=== PATIENT | female | born 1945 | race Caucasian/White ===

== ENCOUNTER → 2016-12-06 | Outpatient (CLI) | payer MEDICARE, OTHER | END | disposition home or self-care (01) | LOC: GMAB 16:36 | PROVIDERS: ATTEND Family Medicine | DX: R31.21 Asymptomatic microscopic hematuria (principal); R30.0 Dysuria ==

== ENCOUNTER → 2016-12-13 | Outpatient (CLI) | payer MEDICARE, OTHER | END | disposition home or self-care (01) | LOC: GMAB 12:12 | PROVIDERS: ATTEND Family Medicine | DX: E78.2 Mixed hyperlipidemia (principal) ==

== ENCOUNTER → 2017-07-17 | Outpatient (CLI) | payer MEDICARE, OTHER | LOC: GMAB 14:46 | PROVIDERS: ATTEND Family Medicine | DX: R30.0 Dysuria (principal) ==

== ENCOUNTER 2017-07-21 16:29 | Emergency (ER) | payer MEDICARE, OTHER ==
[2017-07-21] MEDS ORDERED: ACETAMINOPHEN 325 MG TAB PO ONE (16:42)
--- NOTE | 2017-07-21 16:43 | ED.PDOC ---
History of Present Illness - General Chief Complaint: Fever Stated Complaint: fever Time Seen by Provider: 07/21/17 16:40 Source: patient Exam Limitations: no limitations - History of Present Illness Initial Comments: Kiersten Ruiz 71 y/o female came to emergency room with non productive cough 3 days ago then developed fever yesterday as well as getting shaky.No dysuria, diarrhea,nausea or vomiting. Timing/Duration: constant, other - 3 days Severity: moderate Improving Factors: nothing Worsening Factors: nothing Associated Symptoms: cough Allergies/Adverse Reactions: Allergies NO KNOWN ALLERGY Allergy (Verified 07/21/17 16:42) Home Medications: Ambulatory Orders Clopidogrel Bisulfate [Plavix] 75 mg PO HS 05/22/13 Topiramate [Topamax] 100 mg PO HS 05/22/13 Aspirin [Aspirin EC Low Dose] 81 mg PO BEDTIME 02/13/16 Amoxicillin & Pot Clavulanate [Augmentin Tab] 875 mg PO BID #14 tab 06/23/16 Levofloxacin [Levaquin] 250 mg PO DAILY #5 tab 06/23/16 Primidone 50 mg PO DAILY 06/23/16 Vortioxetine HBr [Brintellix] 10 mg PO DAILY 06/23/16 Amoxicillin [Amoxil] 1,000 mg PO BID #40 cap 07/21/17 Oseltamivir Capsule [Tamiflu] 75 mg PO BID 5 Days #10 capsule 07/21/17 Review of Systems - Review of Systems Constitutional: States: fever EENTM: States: nose congestion Respiratory: States: cough Cardiology: States: no symptoms reported Gastrointestinal/Abdominal: States: no symptoms reported Genitourinary: States: no symptoms reported All other Systems: Reviewed and Negative Past Medical History (General) - Patient Medical History Hx Seizures: No Hx Stroke: No Hx Asthma: No Hx of COPD: No Hx Cardiac Disorders: Yes - stent, hyperlipidemia Hx Congestive Heart Failure: No Hx Pacemaker: No Hx Hypertension: No Hx Diabetes: No Hx MRSA: No Surgical History: other - cardiac stent,hysterectomy,c-spine - Vaccination History Hx Tetanus, Diphtheria Vaccination: No Hx Influenza Vaccination: No Hx Pneumococcal Vaccination: No - Social History Hx Tobacco Use: No Hx Alcohol Use: No Hx Substance Use: No Hx Physical Abuse: No Hx Emotional Abuse: No - Female History Patient is a Female of Child Bearing Age (10 -59 yrs old): No Patient : No Family Medical History - Family History Father Living Status: Cause of : [place] Hx Cardiac Disease: Yes Physical Exam - Physical Exam General Appearance: Alert, No apparent distress Eye Exam: bilateral normal Ears, Nose, Throat: hearing grossly normal, normal pharynx Neck: full range of motion, supple Respiratory: no respiratory distress, rhonchi Cardiovascular/Chest: normal peripheral pulses, regular rate, rhythm, no murmur Peripheral Pulses: radial,right: 2+, radial,left: 2+ Gastrointestinal/Abdominal: normal bowel sounds, non tender, soft, no organomegaly Back Exam: normal inspection, no vertebral tenderness Extremity: non-tender, no calf tenderness Neurologic: alert, oriented x 3 Skin Exam: normal color, warm/dry Progress - Progress Progress: 07/21/17 17:38 Laboratory Tests 07/21/17 07/21/17 07/21/17 17:04 17:04 17:04 WBC 9.7 RBC 4.57 Hgb 13.9 Hct 42.3 MCV 92.5 MCH 30.4 MCHC 32.9 L RDW 13.9 Plt Count 229 MPV 9.2 Absolute Neuts (auto) 7.90 H Absolute Lymphs (auto) 1.00 Absolute Monos (auto) 0.70 Absolute Eos (auto) 0.10 Absolute Basos (auto) 0.00 Neutrophils % 81.1 H Lymphocytes % 10.4 L Monocytes % 6.7 Eosinophils % 1.4 Basophils % 0.4 Sodium 139 Potassium 4.1 Chloride 106 Carbon Dioxide 22 Anion Gap 15.1 BUN 20 H Creatinine 1.24 BUN/Creatinine Ratio 16.1 Random Glucose 145 H Serum Osmolality 282.7 Lactic Acid 1.5 Calcium 10.0 Total Bilirubin 0.4 AST 15 ALT 15 Alkaline Phosphatase 88 Serum Total Protein 8.6 H Albumin 4.7 Globulin 3.9 H Albumin/Globulin Ratio 1.2 - Results/Orders Results/Orders: Laboratory Tests 07/21/17 07/21/17 07/21/17 17:04 17:04 17:04 WBC 9.7 RBC 4.57 Hgb 13.9 Hct 42.3 MCV 92.5 MCH 30.4 MCHC 32.9 L RDW 13.9 Plt Count 229 MPV 9.2 Absolute Neuts (auto) 7.90 H Absolute Lymphs (auto) 1.00 Absolute Monos (auto) 0.70 Absolute Eos (auto) 0.10 Absolute Basos (auto) 0.00 Neutrophils % 81.1 H Lymphocytes % 10.4 L Monocytes % 6.7 Eosinophils % 1.4 Basophils % 0.4 Sodium 139 Potassium 4.1 Chloride 106 Carbon Dioxide 22 Anion Gap 15.1 BUN 20 H Creatinine 1.24 BUN/Creatinine Ratio 16.1 Random Glucose 145 H Serum Osmolality 282.7 Lactic Acid 1.5 Calcium 10.0 Total Bilirubin 0.4 AST 15 ALT 15 Alkaline Phosphatase 88 Serum Total Protein 8.6 H Albumin 4.7 Globulin 3.9 H Albumin/Globulin Ratio 1.2 FLU A/B swab-negative - EKG/XRAY/CT XRAY: chest - no acute abnormalities Departure - Departure Clinical Impression: Viral respiratory illness Time of Disposition: 17:49 Disposition: Discharge to Home or Self Care Condition: Fair Departure Forms: ED Discharge - Pt. Copy, Patient Portal Self Enrollment Instructions: DI for Viral Upper Respiratory Infection -- Adult, DI for Common Cold, Common Cold, Complementary Therapies for the Common Cold, Common Cold ( Alternative Therapy) Referrals: Tiago Laurent MD [Primary Care Provider] - 1-2 Weeks Prescriptions: Amoxicillin [Amoxil] 1,000 mg PO BID #40 cap Oseltamivir Capsule [Tamiflu] 75 mg PO BID 5 Days #10 capsule Home Medications: Ambulatory Orders Clopidogrel Bisulfate [Plavix] 75 mg PO HS 05/22/13 Topiramate [Topamax] 100 mg PO HS 05/22/13 Aspirin [Aspirin EC Low Dose] 81 mg PO BEDTIME 02/13/16 Amoxicillin & Pot Clavulanate [Augmentin Tab] 875 mg PO BID #14 tab 06/23/16 Levofloxacin [Levaquin] 250 mg PO DAILY #5 tab 06/23/16 Primidone 50 mg PO DAILY 06/23/16 Vortioxetine HBr [Brintellix] 10 mg PO DAILY 06/23/16 Amoxicillin [Amoxil] 1,000 mg PO BID #40 cap 07/21/17 Oseltamivir Capsule [Tamiflu] 75 mg PO BID 5 Days #10 capsule 07/21/17 Additional Instructions: Follow up with primary Md 07/22/2017 as needed;May use over the counter cough medicine-Mucinex DM one tablet am/pm for cough;Benadryl capsule 25 mg-1-2 capsule at bedtime;Increase oral fluid intake,Tylenol 500 mg one tablet every 4 hours for fever/pain
[2017-07-21 16:47] VITALS: BP 153/77
[2017-07-21] MEDS ORDERED: LEVALBUTEROL NEBS 1.25 MG/3 ML VIAL NEB ONE (16:48)
--- NOTE | 2017-07-21 17:10 | RAD ---
EXAM DESCRIPTION: Chest,2 Views CLINICAL HISTORY: cough/fever COMPARISON: None FINDINGS: Cardiac silhouette is within normal limits. There is no focal parenchymal or pleural disease. There is no acute osseous process visualized. IMPRESSION: No evidence of acute cardiopulmonary disease. Electronically signed by: Dixon Talley MD 07/21/2017 5:09 PM [employer]
[2017-07-21] MEDS ORDERED: AMOXICILLIN 500 MG CAP PO ONE (17:45)
[2017-07-21] MEDS ORDERED: OSELTAMIVIR 75 MG CAP PO ONE (17:45)
[2017-07-21] MEDS ORDERED: BENZONATATE PERLES 100 MG CAP PO ONE (17:46)
[2017-07-21 18:03] VITALS: TEMP 102.7; O2SAT 96
== END 2017-07-21 18:03 | disposition home or self-care (01) ==
LOC: ER 16:29
DX: R50.9 Fever, unspecified (principal); B34.9 Viral infection, unspecified; E78.5 Hyperlipidemia, unspecified; Z98.61 Coronary angioplasty status; Z79.82 Long term (current) use of aspirin; Z90.2 Acquired absence of lung [part of]
CPT/HCPCS: 36415; 71046; 80053; 83605; 85025; 87502; 94640; J7614

== ENCOUNTER → 2018-03-05 | Outpatient (CLI) | payer MEDICARE, OTHER ==
--- NOTE | 2018-03-05 11:57 | MRI ---
EXAM DESCRIPTION: Cervical Spine: MRI. CLINICAL HISTORY: M47.812 COMPARISON: Noncontrast MRI scan cervical spine 01/26/2011. TECHNIQUE: Multiplanar MRI, multiple sequences, non-contrast High-field. FINDINGS: ACDF C3-C6. Artifact associated with the hardware. No abnormal fluid accumulation in the extra spinal soft tissues, no edema in the cord, and no epidural fluid collection. Moderate canal narrowing C4-5. Uncinate and facet arthrosis on the left resulting in left neural foraminal stenosis at this level. Disc space almost completely bony fused at C3-4. C6-7: Disc desiccation no significant bulging. Moderate left neural foraminal narrowing. Minimal bilateral facet arthrosis. C2-3 disc with minimal desiccation no bulging. Canal and bilateral neural foramina are patent. Normal signal in the remaining discs with no bulging. Disc spaces preserved. Canal and neural foramina are patent. Facets are negative. Spinal alignment reduced lordosis.. No cord compression or cord edema. Atlantoaxial joint is showing minimal hypertrophic changes.. Base of the cerebellar tonsils is at the level of the foramen magnum. Paravertebral soft tissues unremarkable. Vertebral bodies are not compressed at any level. Normal marrow signal in the remaining vertebral bodies and the posterior elements. IMPRESSION: 1. ACDF C3-C6 with no bony or hardware complications. Moderate canal narrowing at C4-5, with minimal left neural foraminal stenosis. Progressed since the prior study. 2. Remaining discs with no significant bulging. No canal or neural foraminal stenosis at these levels.. Electronically signed by: Davy Rachel MD 03/05/2018 11:55 AM CDT
== END ==
LOC: MRI 09:00
PROVIDERS: ATTEND Specialist
DX: M47.812 Spondylosis without myelopathy or radiculopathy, cervical region (principal)

== ENCOUNTER → 2018-03-06 | Outpatient (CLI) | payer MEDICARE, OTHER | LOC: GMATM 17:42 | PROVIDERS: ATTEND Nurse Practitioner Family | DX: N30.00 Acute cystitis without hematuria (principal) ==

== ENCOUNTER → 2018-04-29 | Outpatient (CLI) | payer MEDICARE, OTHER ==
--- NOTE | 2018-04-29 15:47 | CT ---
EXAM DESCRIPTION: Cervical Spine: Computed Tomography. CLINICAL HISTORY: CERVICAL DISC DISORDER COMPARISON: Radiographs of the cervical spine on the same visit. Radiographs of the cervical spine 03/05/2018. MRI scan of the cervical spine 03/05/2018. TECHNIQUE: Spiral, axial 2.5 x 2.5 mm scans through the cervical spine without contrast. Coronal and sagittal 2.0 mm Reconstructions. Total Exam DLP: 249.44 mGy-cm. This exam was performed according to our departmental dose-optimization program which includes automated exposure control, adjustment of the mA and/or kV according to patient size and/or use of iterative reconstruction technique; to reduce radiation dose to as low as reasonably achievable (ALARA). FINDINGS: Narrowing of the atlantoaxial joint with spur formation. Atlantooccipital joint is unremarkable bilaterally. No acute bony abnormality. C1-2 facets are negative. C2-3 disc space preserved. Posterior midline 2 mm bulge of the disc abutting the cord. Canal and bilateral foramina are patent. Minimal arthrosis in the left C2-3 facet. No fractures. C3-4: ACDF with interbody fusion device. Interbody fusion mostly osseous and almost complete. Hardware appears intact. Normal bone density around the screws with normal plate position. No canal narrowing. Minimal bilateral neural foraminal narrowing. Minimal arthrosis bilateral facets. No abnormal radiodense material in the soft tissues. Normal bone density, no fractures. C4-C5: This level is not fused, but there is disc space loss and trace anterolisthesis. Almost bridging spurs anteriorly with posterior midline and left paracentral 3 to 4 mm bulge or protrusion impressing on the cord. Borderline canal stenosis. Left facet arthrosis and uncinate spur with neural foraminal stenosis. Mild narrowing of the right neural foramen. Normal bone density, no fractures. C5-C7: ACDF with interbody cages in the disc spaces. Hardware appears intact. Minimal bony fusion at age level. No canal stenosis. Bilateral neural foraminal narrowing at each level. Bilateral facet arthrosis more at C6-7 and C5-C6. Normal bone density around the screws. No abnormal radiodense material in the soft tissues. No fractures. C7-T1: Trace anterolisthesis. Minimal disc space narrowing. Facet arthrosis more on the left than the right. Right neural foramen is patent with borderline left neural foraminal stenosis. Normal bone density. No fractures. T1-2: Trace anterolisthesis. Mild right neural foraminal narrowing; borderline left neural foraminal stenosis. Canal is patent. Arthrosis in the left facet. Normal bone density. No fractures. Minimal reduction of normal cervical lordosis. Mild levoscoliosis. IMPRESSION: 1. ACDF C3-4 with interbody fusion device; osseous fusion is almost completely. Bilateral neural foraminal narrowing. Minimal. Minimal canal narrowing. 2. Posterior midline bulge of the C2-3 disc abutting the cord. Minimal arthrosis in the left C2-3 facet. 3. C4-5 with trace anterolisthesis. Posterior midline and left paracentral disc bulge or small protrusion with borderline left paracentral canal stenosis. Left neural foraminal stenosis. Correlate for left C5 radiculopathy. 4. C5-C7 ACDF with interbody fusion cages. Bilateral facet arthrosis. Bilateral neural foraminal narrowing. 5. C7-T1 right neural foraminal narrowing and left neural foraminal stenosis with facet arthrosis and left uncinate spur. Electronically signed by: Davy Rachel MD 04/29/2018 3:45 PM [facility]
--- NOTE | 2018-04-29 15:57 | RAD ---
EXAM DESCRIPTION: Cervical Spine,5 Views CLINICAL HISTORY: CERVICAL DISC DISORDER COMPARISON: CT scan of the cervical spine on the same visit.. TECHNIQUE: AP and lateral images cervical spine. Lateral oblique "Open-mouth" radiographs of the atlantoaxial joint. FINDINGS: Cervical type vertebra: 7. Disk spaces: ACDF C3-4 with interbody fusion and partial ossification. C5-C7 fusion with interbody cages. Narrowing C4-C5 disc space and C7-T1 disc space with minimal anterolisthesis. Facet joints: Arthrosis at multiple levels. Compression deformities: None. Bone Density: Minimally decreased. Oblique: Narrowing of the right C4-5 neural foramen and right C6-7 neural foramen. Difficulty evaluating the left neural foramen due to nondiagnostic position of the LA oblique. Alignment: Decreased lordosis. Grade 1 anterolisthesis C7-T1. Atlanto-axial joint: Anatomic alignment. Soft Tissue: No abnormal density bilaterally. IMPRESSION: Interbody fusion at C3-4 and interbody cages at C5-C7. Customary position. Near-anatomic alignment. C4-C5 disc space narrowing. Anterolisthesis at C7-T1. Possible neural foraminal stenosis on the right at C4-5 and on the right at C6-7. Electronically signed by: Davy Rachel MD 04/29/2018 3:56 PM [employer]
== END ==
LOC: CT 10:00
PROVIDERS: ATTEND Neurological Surgery
DX: M50.121 Cervical disc disorder at C4-C5 level with radiculopathy (principal); M50.20 Other cervical disc displacement, unspecified cervical region; Z98.1 Arthrodesis status

== ENCOUNTER → 2018-07-23 | Outpatient (CLI) | payer MEDICARE, OTHER ==
--- NOTE | 2018-07-24 08:36 | RAD ---
Procedure: XR CERVICAL SPINE 2 - 3 VIEWS Exam Date: 07/23/2018 Ordering Provider: Lawrence Obando Clinical Indication: POST LAMINECTOMY SYNDROME Comparison: 04/29/2018 Findings/impression: Postsurgical changes of ACDF with interbody fusion at C3-C4 are without radiographic evidence of hardware complication. Stable ACDF with interbody cages from C5 to C7. Anterior interbody fusion device at C4-C5 is new and without radiographic evidence of hardware complication. Postsurgical changes of posterior cervical fusion with bilateral lateral mass screws and rods at C4-C5 are new compared to prior and without radiographic evidence of hardware complication. Multilevel facet arthropathy. Trace anterolisthesis of C7 on T1. There is no acute fracture. The prevertebral soft tissues are within normal limits. Electronically signed by: Xavier Garcia MD 07/24/2018 8:34 AM [facility]
== END ==
LOC: RAD 13:53
PROVIDERS: ATTEND Neurological Surgery
DX: M96.1 Postlaminectomy syndrome, not elsewhere classified (principal); M50.121 Cervical disc disorder at C4-C5 level with radiculopathy

== ENCOUNTER → 2019-02-12 | Outpatient (CLI) | payer MEDICARE, OTHER | LOC: GMAE 14:40 | PROVIDERS: ATTEND Family Medicine | DX: E53.8 Deficiency of other specified B group vitamins (principal); E83.51 Hypocalcemia; R53.82 Chronic fatigue, unspecified; M62.81 Muscle weakness (generalized); Z13.6 Encounter for screening for cardiovascular disorders ==

== ENCOUNTER → 2019-06-01 | Outpatient (CLI) | payer MEDICARE, OTHER ==
--- NOTE | 2019-06-01 16:22 | RAD ---
EXAM DESCRIPTION: Cervical Spine, 2-3 Views CLINICAL HISTORY: 73 years Female, CERVICAL STENOSIS COMPARISON: Radiographs of the cervical spine dated 07/23/2018. TECHNIQUE: 3 views of the cervical spine were obtained. FINDINGS: The visualized bones appear diffusely osteopenic. Anterior spinal fixation hardware is noted traversing C3-C7 vertebral bodies. Posterior spinal fixation hardware is noted traversing C4 and C5 vertebral bodies. Degenerative disc disease is not well evaluated on radiographs. IMPRESSION: Anterior spinal fixation hardware is noted traversing C3-C7 vertebral bodies. Posterior spinal fixation hardware is noted traversing C4 and C5 vertebral bodies. Electronically signed by: Rangel Gaines MD 06/01/2019 4:20 PM [facility]
== END ==
LOC: RAD 14:11
PROVIDERS: ATTEND Neurological Surgery
DX: M48.02 Spinal stenosis, cervical region (principal); Z98.890 Other specified postprocedural states

== ENCOUNTER 2020-01-05 16:08 | Observation (INO) | payer MEDICARE, OTHER ==
[2020-01-05] MEDS ORDERED: SODIUM CHLORIDE 0.9% (FLUSH) 10 ML SYG IV PRN ×2 (16:11→21:01)
--- NOTE | 2020-01-05 16:12 | ED.PDOC ---
History of Present Illness - General Time Seen by Provider: 01/05/20 16:11 Source: patient - History of Present Illness Initial Comments: 74-year-old female with past medical history of TIAs who presents with chief complaint of left upper extremity weakness. Onset around 7 PM yesterday evening which was about 9.5 hours ago. Reports has been constant in nature since then. States that it feels like her arm is heavy and having difficulty grasping and lifting items. The symptoms are present throughout the entire left upper extremity and her hand. She denies any numbness. She denies any other focal neurological deficits including facial droop, slurred speech, confusion, ataxia, visual changes. She reports similar symptoms about 6 years ago which eventually resolved and she was told that she had a TIA. No other symptoms since then. She took 2 baby aspirin last night but has not taken any medication today for her symptoms. Allergies/Adverse Reactions: Allergies NO KNOWN ALLERGY Allergy (Verified 07/21/17 16:42) Home Medications: Ambulatory Orders RX: Topiramate [Topamax] 200 mg PO HS 05/22/13 Aspirin [Aspirin EC Low Dose] 81 mg PO BEDTIME 02/13/16 RX: Primidone 50 mg PO BEDTIME 06/23/16 Atorvastatin Calcium [Lipitor] 20 mg PO BEDTIME 01/05/20 Vortioxetine HBr [Brintellix] 10 mg PO DAILY 01/05/20 tiZANidine [Zanaflex] 2 - 4 mg PO BEDTIME 01/05/20 Review of Systems - Review of Systems Review of Systems: 01/06/20 05:08 as per HPI All other Systems: Reviewed and Negative Past Medical History (General) - Patient Medical History Hx Seizures: No Hx Stroke: No Hx Asthma: No Hx of COPD: No Hx Cardiac Disorders: Yes - stent, hyperlipidemia Hx Congestive Heart Failure: No Hx Pacemaker: No Hx Hypertension: No Hx Diabetes: No Hx MRSA: No - Vaccination History Hx Tetanus, Diphtheria Vaccination: No Hx Influenza Vaccination: No Hx Pneumococcal Vaccination: No - Social History Hx Tobacco Use: No Hx Alcohol Use: No Hx Substance Use: No Hx Physical Abuse: No Hx Emotional Abuse: No - Female History Patient : No Family Medical History - Family History Brother Hx Family Stroke: Yes Father Living Status: Cause of : [place] Hx Cardiac Disease: Yes Physical Exam - Physical Exam General Appearance: Alert, Comfortable, No apparent distress Eye Exam: bilateral normal Ears, Nose, Throat: hearing grossly normal, normal ENT inspection, normal pharynx Neck: non-tender, full range of motion, supple, normal inspection Respiratory: lungs clear, normal breath sounds, no respiratory distress, no accessory muscle use Cardiovascular/Chest: normal peripheral pulses, regular rate, rhythm, no edema, no gallop, no JVD, no murmur Peripheral Pulses: radial,right: 2+, radial,left: 2+ Gastrointestinal/Abdominal: non tender, soft Back Exam: normal inspection Extremity: normal range of motion, non-tender, normal inspection, no pedal edema, no calf tenderness, normal capillary refill Neurologic: master of ceremonies II-XII nml as tested, no motor/sensory deficits, alert, normal mood/affect, oriented x 3 Skin Exam: normal color, warm/dry Progress - Progress Progress: 01/05/20 16:31 LUE weakness -Consider TIA, CVA, other -Obtain CT head, cardiac work-up, labs -NIH score on arrival of 0. As patient is outside of the 4.5-hour TPA window, she is not a candidate for TPA unfortunately. Hopefully her low NIH score will portend a good prognosis. 01/05/20 18:31 -CT head reveals no acute processes. Chest x-ray shows no acute processes per my read. Labs reveal WBC of 12,000 with slight left shift, otherwise unremarkable. Given leukocytosis and increasing prevalence of COVID-19, will obtain rapid COVID-19 antigen test. -Pt reexamined, remains unchanged -We will give aspirin 324 mg p.o. for TIA versus CVA -Spoke with Dr. Yusuf who accepts to his service for further care Thien Blank MD Billing #[id number] 01/05/20 16:11 IV Care:Saline Lock per Protoc QSHIFT Telemetry .ONCE Sodium Chloride 0.9% (Flush) [Saline Flush Syringe] 10 ml IV PRN PRN 01/05/20 16:15 EKG STAT 01/05/20 18:25 RESPIRATORY PANEL 2 Stat 01/05/20 18:30 URINALYSIS Stat Laboratory Results - last 24 hr 01/05/20 01/05/20 01/05/20 16:36 16:36 16:36 WBC 12.0 H RBC 4.22 Hgb 13.1 Hct 38.9 MCV 92.3 MCH 31.2 H MCHC 33.8 RDW 13.8 Plt Count 245 MPV 8.9 Absolute Neuts (auto) 9.20 H Absolute Lymphs (auto) 2.00 Absolute Monos (auto) 0.80 Absolute Eos (auto) 0.00 Absolute Basos (auto) 0.00 Neutrophils % 76.4 Lymphocytes % 16.6 L Monocytes % 6.6 Eosinophils % 0.3 L Basophils % 0.1 PT 9.8 INR < 1.00 PTT (SP) 23.4 Sodium 138 Potassium 4.2 Chloride 110 Carbon Dioxide 18 L Anion Gap 14.2 BUN 41 H Creatinine 1.10 BUN/Creatinine Ratio 37.3 H POC Glucose Random Glucose 165 H Serum Osmolality 289.5 Calcium 9.2 Total Bilirubin 0.5 AST 21 ALT 30 Alkaline Phosphatase 78 Troponin I Serum Total Protein 7.2 Albumin 3.9 Globulin 3.3 Albumin/Globulin Ratio 1.2 01/05/20 01/05/20 16:36 16:36 WBC RBC Hgb Hct MCV MCH MCHC RDW Plt Count MPV Absolute Neuts (auto) Absolute Lymphs (auto) Absolute Monos (auto) Absolute Eos (auto) Absolute Basos (auto) Neutrophils % Lymphocytes % Monocytes % Eosinophils % Basophils % PT INR PTT (SP) Sodium Potassium Chloride Carbon Dioxide Anion Gap BUN Creatinine BUN/Creatinine Ratio POC Glucose 160 H Random Glucose Serum Osmolality Calcium Total Bilirubin AST ALT Alkaline Phosphatase Troponin I < 0.02 Serum Total Protein Albumin Globulin Albumin/Globulin Ratio 01/06/20 05:07 - EKG/XRAY/CT EKG: Sinus - NSR, HR 80, no ST elevs or q waves noted, axis normal, intervals normal, compared to 12/27/14 EKG appears largely unchanged. XRAY: chest - No acute processes per my read. Departure - Departure Clinical Impression: TIA (transient ischemic attack) Time of Disposition: 18:30 Disposition: Admit Patient Condition: Fair Home Medications: Ambulatory Orders RX: Topiramate [Topamax] 200 mg PO HS 05/22/13 Aspirin [Aspirin EC Low Dose] 81 mg PO BEDTIME 02/13/16 RX: Primidone 50 mg PO BEDTIME 06/23/16 Atorvastatin Calcium [Lipitor] 20 mg PO BEDTIME 01/05/20 Vortioxetine HBr [Brintellix] 10 mg PO DAILY 01/05/20 tiZANidine [Zanaflex] 2 - 4 mg PO BEDTIME 01/05/20 Decision To Admit - Decistion To Admit Decision to Admit Reason: Admit from ER Decision to Admit Date: 01/05/20 Decision to Admit Time: 18:31
--- NOTE | 2020-01-05 17:08 | RAD ---
EXAM DESCRIPTION: Chest,1 View x-ray CLINICAL HISTORY: 74 years Female, Left-sided weakness COMPARISON: 07/21/2017 IMPRESSION: Heart size and pulmonary vascularity are within normal limits. There is no airspace consolidation, pleural effusion, or pneumothorax. No acute osseous abnormality. Lower cervical ACDF hardware. Electronically signed by: Johnnie Agrawal MD 01/05/2020 5:07 PM CDT
--- NOTE | 2020-01-05 17:10 | CT ---
EXAM DESCRIPTION: CT-Head CLINICAL HISTORY: Left-sided weakness COMPARISON: MRI brain 11/07/2012 TECHNIQUE: Multiple axial images of the head without contrast. Multiplanar reformatted images. This exam was performed according to our departmental dose-optimization program, which includes automated exposure control, adjustment of the mA and/or kV according to patient size and/or use of iterative reconstruction technique. FINDINGS: There is no CT evidence of intracranial hemorrhage, mass effect, or large territory infarction. Mild generalized volume loss. Mild patchy supratentorial white matter hypodensities. There are no abnormal extra-axial fluid collections. Calcific plaque in the visualized arteries. There is no acute calvarial defect. The visualized paranasal sinuses and the mastoids are clear. IMPRESSION: 1. No CT evidence of an acute intracranial abnormality. If there is concern for an acute or subacute infarct, consider follow-up MRI. 2. Mild senescent changes. Electronically signed by: Johnnie Agrawal MD 01/05/2020 5:08 PM CDT
[2020-01-05] MEDS ORDERED: cefTRIAXone SODIUM 1 GM in SODIUM CHL 0.9% 50ML MIN-BAG+ 50 ML IVPB ONE (18:54)
[2020-01-05] MEDS ORDERED: GLUCAGON INJ 1 MG VIAL SUBCU PRN (21:01)
[2020-01-05] MEDS ORDERED: DEXTROSE 50% 25 GM/50 ML SYG IV PRN (21:01)
[2020-01-05] MEDS ORDERED: ACETAMINOPHEN 325 MG TAB PO PRN (21:01)
--- NOTE | 2020-01-05 21:02 | HP ---
CHIEF COMPLAINT: Left arm weakness. HISTORY OF PRESENT ILLNESS: The patient noticed last night that she had a weak left arm. She had a difficult time gripping things and moving her left arm, also some paresthesia in the left arm and hand. This persisted throughout the night. This morning, she called her primary care physician, Dr. Woo, who recommended she come to the Emergency Room. In the Emergency Room, the weakness had significantly improved, but there was some persistent weakness in the left arm. She denied any other symptoms. She denies any chest pain, shortness of breath, nausea, vomiting, diaphoresis. She had no other weakness. Her legs seemed to be functioning fine. She did not have any slurred speech. Her mental status remained sharp throughout. PAST MEDICAL HISTORY: 1. Previous transient ischemic attack several years ago. 2. Type 2 diabetes mellitus. 3. Coronary artery disease and had stents placed in 2012. She is not sure which arteries they were placed in. PAST SURGICAL HISTORY: 1. Hysterectomy with bilateral oophorectomy. 2. Cervical spine procedure in July of 2018. She is unsure exactly what was done. CURRENT MEDICATIONS: 1. Plavix 75 mg 1 tablet p.o. q.h.s. 2. Topamax 100 mg 1 tablet p.o. q.h.s. 3. Aspirin 81 mg p.o. q.h.s. These medicines have not yet been verified, they will be verified by [facility]. ALLERGIES: NO KNOWN DRUG ALLERGIES. FAMILY HISTORY: Her father at age 76 of coronary artery disease. Her mother at age 93 with coronary artery disease. She has four children, all of whom are healthy. SOCIAL HISTORY: The patient is . She worked in the school for a number of years. She has no history of tobacco, alcohol or drug abuse. REVIEW OF SYSTEMS: CONSTITUTIONAL: No fever, chills, weight gain, weight loss or weight gain. HEENT: No visual disturbance, neck pain or stiffness. CARDIAC: No chest pain or palpitations. RESPIRATORY: No shortness of breath, cough or hemoptysis. GASTROINTESTINAL: No nausea, vomiting, hematemesis, hematochezia, melena, diarrhea or constipation. GENITOURINARY: She has had some minimal dysuria. No hematuria or polyuria. MUSCULOSKELETAL: No joint aches or muscle pains. SKIN: No rashes. NEUROLOGIC: As per history of present illness, she has weakness in her left arm. PHYSICAL EXAMINATION: VITAL SIGNS: From the Emergency Room, pulse 66, respiratory rate 20, blood pressure 147/66, oxygen saturation 97%, temperature 98. GENERAL: This is a well-nourished, well-hydrated female. She is in no acute distress at the time of my arrival. HEENT: Normocephalic, atraumatic. Tympanic membranes are clear. Pupils are equal, round, and reactive to light. Extraocular muscles are intact. Throat is clear. Mucous membranes are moist. NECK: Supple. No jugular venous distention, no carotid bruits. She has a well-healed incisional scar in the posterior neck. It is vertical. CHEST: Clear to auscultation bilaterally. No wheezes or rales. HEART: Regular rate and rhythm without murmur. ABDOMEN: Soft, nontender, nondistended. Bowel sounds positive. No rebound or guarding. EXTREMITIES: No cyanosis, clubbing or edema. NEUROLOGIC: Alert and oriented to person, place, time and situation. Cranial nerves II-XII are intact. Deep tendon reflexes are equal bilaterally. Strength shows left arm with slightly weakened medicare biller strength in the left hand and slightly decreased ability to pull towards herself with that left arm compared with the right. Otherwise, she has full range of motion on all extremities. The rest of her extremities are equal. She is able to stand. Romberg test is negative. SKIN: No lesions or rashes. She has some seborrheic keratoses on her back. Otherwise unremarkable. LABORATORY: White blood cell count 12.0, hemoglobin 13.1, hematocrit 38.9, platelet count 245. PT 9.8, INR less than 1, PTT 23.4. Sodium 138, potassium 4.2, chloride 110, CO2 18, anion gap 14.2, BUN 41, creatinine 1.1, glucose 160, ALT 21, AST 30, alkaline phosphatase 78, total serum protein 7.2. Urinalysis had too numerous to count white blood cells, 5 to 10 red blood cells, large leukocyte esterase and 2+ urine bacteria. IMAGING: CT scan of the head done in the Emergency Room showed no evidence of any acute intracranial abnormality. Chest x-ray was unremarkable. IMPRESSION: 1. Acute cerebrovascular accident with now greater than 24 hour weakness in the left hand, but does seem to be improving and possibly will be a resolving neurologic deficit. 2. Urinary tract infection. 3. Type 2 diabetes mellitus. 4. Hyperlipidemia. DISCUSSION/PLAN: This patient will be admitted for observation. Close neurological monitoring will be performed overnight. She will be on Plavix 75 mg a day as well as aspirin 81 mg a day. Her blood pressure will be monitored closely. Her home medications will be verified and resumed. We will reevaluate her in the morning. She will have an echocardiogram, carotid Doppler and MRI tomorrow as well. I would anticipate if she continues to improve she may be able to go home tomorrow. #[id number] [facility]
[2020-01-05] MEDS ORDERED: IV SET AND CAP CHANGE INJ INJ SCH (21:30)
[2020-01-05] MEDS ORDERED: PRIMIDONE 50 MG TAB PO ONE (21:58)
[2020-01-05] MEDS ORDERED: ATORVASTATIN 20 MG TAB PO ONE (21:59)
[2020-01-05] MEDS ORDERED: tiZANidine 4 MG TAB ONE (21:59)
[2020-01-05] MEDS ORDERED: ASPIRIN (ENTERIC COATED) 81 MG TAB PO ONE (21:59)
[2020-01-06] MEDS: INSULIN LISPRO 100 UNITS/ML PEN SUBCU SCH ×2 (07:30→12:34)
[2020-01-06] MEDS ORDERED: NON-FORMULARY MEDICATION 1 EA MIS (Vortioxetine Hbr [Trintellix] 10 MG) PO SCH (09:00)
[2020-01-06] MEDS ORDERED: ASPIRIN (CHEWABLE) 81 MG TAB PO SCH (09:00)
[2020-01-06] MEDS ORDERED: cefTRIAXone SODIUM 1 GM in SODIUM CHL 0.9% 50ML MIN-BAG+ 50 ML IVPB SCH (09:00)
[2020-01-06] MEDS ORDERED: CLOPIDOGREL 75 MG TAB PO SCH (09:00)
--- NOTE | 2020-01-06 13:46 | US ---
EXAM DESCRIPTION: Carotid Duplex: ULTRASOUND. CLINICAL HISTORY: 74 years Female CVA COMPARISON: MRI brain on the same visit. TECHNIQUE: Transcutaneous scanning utilizing gómez-scale and Doppler modes to evaluate the bilateral carotid systems and vertebral arteries. Percentage of diameter of stenosis or no stenosis recorded will be based upon NASCET criteria. FINDINGS: Peak systolic/end diastolic (CM-Sec) CCA Right 78/13 Left 93/11. ICA Right proximal 48/13, mid 57/14. Left proximal 49/12, Distal 57/15. Vertebral Right 39/9 Left 47/13. ECA (PS Only) Right 134 left 51. ICA/CCA peak systolic ratio: Right 0.7 Left 0.6 ICA/CCA end diastolic ratio: Right 1.1 Left 1.4 Vertebral arteries: antegrade flow. Comments Comments: Bilateral atherosclerotic calcification in the common carotid bulbs and proximal ICAs. Spectral broadening in the left ICA with color turbulent flow distally. IMPRESSION: 1. Doppler evaluation of the bilateral carotid systems and vertebral arteries shows no hemodynamically significant stenoses (less than 70%). 2. No significant amount of plaque in the carotid arteries bilaterally. Bilateral vertebral arteries showed antegrade-cephalad flow. Electronically signed by: Davy Rachel MD 01/06/2020 1:44 PM CDT
[2020-01-06 15:36] VITALS: O2SAT 95
[2020-01-06 18:12] VITALS: BP 118/70; TEMP 98.1
[2020-01-06] MEDS ORDERED: NON-FORMULARY MEDICATION 1 EA MIS (Topiramate [Topamax] 200 MG) PO SCH (21:00)
[2020-01-06] MEDS ORDERED: ATORVASTATIN 20 MG TAB PO SCH ×2 (21:00)
[2020-01-06] MEDS ORDERED: tiZANidine 4 MG TAB PO SCH (21:00)
[2020-01-06] MEDS ORDERED: ASPIRIN (ENTERIC COATED) 81 MG TAB PO SCH (21:00)
[2020-01-06] MEDS ORDERED: PRIMIDONE 50 MG TAB PO SCH (21:00)
[2020-01-06] MEDS ORDERED: TOPIRAMATE 25 MG TAB PO SCH (21:00)
--- NOTE | 2020-01-07 03:59 | MRI ---
EXAM DESCRIPTION: Brain w/oContrast CLINICAL HISTORY: 74 years Female, CVA COMPARISON: CT head without contrast January 05, 2020. MRI brain November 07, 2012 TECHNIQUE: Multiplanar and multisequence MR imaging of the brain was performed without intravenous contrast. Sequences obtained include axial diffusion, sagittal T1, axial T2, axial FLAIR, axial proton density, and axial T1. FINDINGS: No evidence of diffusion restriction to suggest acute ischemia. Patchy hyperintense T2/FLAIR signal in the toño and cerebral white matter is again demonstrated which can be seen with chronic microvascular ischemic changes. No intracranial hemorrhage. No evidence of a mass or midline shift. No ventriculomegaly. Richardson-white matter differential appears maintained. No abnormal extra-axial fluid collection. Normal T2 flow voids in the major intracranial arterial vasculature noted. Orbital and orbital contents appear unremarkable. Mastoid air cells demonstrate small amount of nonspecific patchy hyperintense T2 signal. Paranasal sinuses demonstrate unremarkable MR signal. Calvarium appears unremarkable. IMPRESSION: 1. No evidence of acute ischemia. 2. Findings suggestive of chronic microvascular ischemic changes. Electronically signed by: Zana Wayne MD 01/07/2020 3:57 AM CDT
--- NOTE | 2020-01-07 13:22 | DS ---
SUPERVISING PHYSICIAN: Beau Ochoa MD DISCHARGE DIAGNOSIS: 1. Acute cerebrovascular accident that was greater than 24 hours of weakness in the left hand, but has improved and most likely resolving. 2. Urinary tract infection. 3. Type 2 diabetes mellitus. 4. Hyperlipidemia. HISTORY OF PRESENT ILLNESS: This is a 73-year-old female patient that 24 hours prior to coming to the Emergency Room had noticed that her left arm was weak. She had a difficult time gripping things and moving her left arm. There was also some paresthesia in the left arm and hand. It continued through the night. The following morning, she called her primary care physician, Dr. Woo, who recommended she come to the Emergency Room. In the Emergency Room, the weakness had significantly improved, but there was some persistent weakness in the left arm. There were no other complaints of any other symptoms. She denies any chest pain, shortness of breath, nausea, vomiting, diaphoresis. Her legs seemed to be functioning without problem. She did not have any slurred speech. She was alert and oriented throughout the entire episode. HOSPITAL COURSE: The patient was placed in observation the hospital overnight for further neurological monitoring. She was also put on Plavix and aspirin 81 mg daily. Her vital signs were monitored closely and her home medications were restarted. An echocardiogram, carotid Doppler and MRI were ordered. Today, her neurological status has improved. Physical therapy did evaluate the patient and felt she was safe to go home. Her echocardiogram, MRI and carotid Doppler were also completed. She will be discharged home today in stable condition. LABORATORY: CBC was mostly unremarkable with the exception of her WBCs slightly elevated at 12,000. PT, PTT were within normal limits. Electrolytes were basically within normal limits with the exception of her carbon dioxide was slightly low at 18. BUN 41, creatinine 1.1. Hemoglobin A1c 6.7. Triglycerides 116, LDL 119, HDL 48. Urinalysis was positive for urinary tract infection with moderate urine blood, large amount of urine leukocyte esterase, 5 to 10 urine RBCs, too numerous to count urine WBCs and 2+ urine bacteria. MICROBIOLOGY: Her urine culture is pending. COVID testing was negative. IMAGING: Chest x-ray showed heart size and pulmonary vasculature within normal limits. There was no airspace consolidation, pleural effusion or pneumothorax. No acute osseous abnormality. Her head CT showed 1) No CT evidence of acute intracranial abnormality. Recommend MRI. 2) Mild senescent changes. Her brain MRI showed 1) No evidence of acute ischemia. 2) Findings suggestive of chronic microvascular ischemic changes. Her carotid artery ultrasound showed 1) Doppler evaluation of the bilateral carotid systems and vertebral arteries show no hemodynamically significant stenosis, less than 70%. 2) No significant amount of plaque in the carotid arteries bilaterally. Bilateral vertebral arteries showed antegrade cephalad flow. Her echocardiogram showed 1) Moderate concentric left ventricular hypertrophy. 2) Left ventricular ejection fraction estimated by 2D at 65-70%. Abnormal septal motion probably due to IVCD technically difficulty study. 3) Grade 1 diastolic dysfunction consistent with impaired relaxation and normal filling pressures. 4) Normal right atrial size. Negative bubble study for right and left shunt. The study was technically difficult. DISCHARGE PLAN: The patient will be discharged home in stable condition. She is to resume her previous activities and resume her usual diet. She has a followup Telehealth appointment with Dr. Woo on 01/11/20 at 9:15 am. It is to be noted that her MRI, her carotid and her echocardiogram results were not available at time of discharge. Also, she has a urine culture pending. In addition to her routine medications, she is to take cefdinir 300 mg twice daily for 9 days and she is also on Plavix 75 mg daily. She is to return to the hospital or followup with Dr. Woo for any problems or complications. DISCHARGE MEDICATIONS: 1. Topamax. 2. Aspirin. 3. Primidone. 4. Zanaflex. 5. Trintellix. 6. Lipitor. 7. Cefdinir. 8. Plavix. #[id number] [facility]
== END 2020-01-06 17:00 | disposition home or self-care (01) ==
LOC: ER 16:08 → MS 21:01
PROVIDERS: ADMIT Family Medicine; ATTEND Nurse Practitioner Acute Care
DX: I63.9 Cerebral infarction, unspecified (principal); G81.94 Hemiplegia, unspecified affecting left nondominant side; R29.700 NIHSS score 0; N39.0 Urinary tract infection, site not specified; B96.89 Other specified bacterial agents as the cause of diseases classified elsewhere; E11.9 Type 2 diabetes mellitus without complications; E78.5 Hyperlipidemia, unspecified; I25.10 Atherosclerotic heart disease of native coronary artery without angina pectoris; Z11.59 Encounter for screening for other viral diseases; Z79.02 Long term (current) use of antithrombotics/antiplatelets; Z79.82 Long term (current) use of aspirin; Z79.899 Other long term (current) drug therapy; Z95.5 Presence of coronary angioplasty implant and graft; Z86.73 Personal history of transient ischemic attack (TIA), and cerebral infarction without residual deficits; Z82.49 Family history of ischemic heart disease and other diseases of the circulatory system
CPT/HCPCS: 96365; 96376; J0696 ×2; J7050 ×2; 80053; 87086; 82948 ×4; 83036; 80061; 81001; 85025; 83735; 85730; 85610; 84443; 84484; 36416 ×3; 71045; 70450; 93880; 94760 ×2; 97116; 97162; 99285; 93306; 70551; 93005; G0378; 87635

== ENCOUNTER → 2020-03-07 | Outpatient (CLI) | payer MEDICARE, OTHER | LOC: GMAE 11:28 | PROVIDERS: ATTEND Family Medicine | DX: D51.3 Other dietary vitamin B12 deficiency anemia (principal); Z79.899 Other long term (current) drug therapy; E78.2 Mixed hyperlipidemia ==

== ENCOUNTER → 2020-05-23 | Outpatient (CLI) | payer MEDICARE, OTHER | LOC: GMAE 16:40 | PROVIDERS: ATTEND Family Medicine | DX: N39.0 Urinary tract infection, site not specified (principal) ==

== ENCOUNTER 2020-07-24 14:58 | Emergency (ER) | payer MEDICARE, OTHER ==
[2020-07-24] MEDS ORDERED: ONDANSETRON INJ 4 MG/2 ML VIAL IV ONE (15:39)
[2020-07-24] MEDS ORDERED: SODIUM CHLORIDE 0.9% 500ML 500 ML IVS ONE (15:45)
[2020-07-24] MEDS ORDERED: cefTRIAXone SODIUM 1 GM in SODIUM CHL 0.9% 50ML MIN-BAG+ 50 ML IVPB ONE (16:21)
--- NOTE | 2020-07-24 16:35 | ED.PDOC ---
History of Present Illness - General Chief Complaint: GI Problem Stated Complaint: diarrhea, frequency, vomiting, back pain Time Seen by Provider: 07/24/20 15:14 Source: patient, RN notes reviewed, Vital Signs reviewed Exam Limitations: no limitations - History of Present Illness Initial Comments: 74 yo F with pmh of CVA comes in with the c.c of urge incontience x 2 weeks, and one day of nausea, vomiting, diarrhea. stool brown. no black or bloody bm. no recent antibiotics. no known sick contacts. no abdominal pain. Denies fever, chills, cough. Allergies/Adverse Reactions: Allergies NO KNOWN ALLERGY Allergy (Verified 07/24/20 15:28) Home Medications: Ambulatory Orders Topiramate [Topamax] 200 mg PO HS 05/22/13 Primidone 50 mg PO BEDTIME 06/23/16 Atorvastatin Calcium [Lipitor] 20 mg PO BEDTIME 01/05/20 Vortioxetine HBr [Trintellix] 10 mg PO DAILY 01/05/20 tiZANidine [Zanaflex] 2 - 4 mg PO BEDTIME 01/05/20 Aspirin-Dipyridamole [Aspirin/Dipyridamole ER 25-200 mg] 1 cap PO DAILY 07/24/20 Lactobacillus [Abatinex] 680 mg PO BID #16 cap 07/24/20 Ondansetron HCl [Zofran] 4 mg PO TID PRN #15 tab 07/24/20 Sulfamethoxazole-Trimethoprim [Bactrim Ds 800-160 mg] 1 tab PO BID #14 tab 07/24/20 Review of Systems - Review of Systems Constitutional: Denies: chills, fever, malaise EENTM: Denies: blurred vision, nose pain, throat pain, mouth pain Respiratory: Denies: cough Cardiology: Denies: chest pain, palpitations, syncope Gastrointestinal/Abdominal: States: diarrhea, nausea, vomiting. Denies: abdominal pain, constipation Genitourinary: States: other - urge incontience.. Denies: dysuria, frequency Musculoskeletal: Denies: back pain, muscle pain, neck pain Skin: Denies: rash Neurological: Denies: headache, numbness, pre-existing deficit, weakness Endocrine: Denies: increased urine, unexplained weight gain, unexplained weight loss Hematologic/Lymphatic: Denies: easy bleeding, easy bruising Past Medical History (General) - Patient Medical History Hx Seizures: No Hx Stroke: Yes Hx Dementia: No Hx Asthma: No Hx of COPD: No Hx Cardiac Disorders: Yes - stent, hyperlipidemia Hx Congestive Heart Failure: No Hx Pacemaker: No Hx Hypertension: No Hx Thyroid Disease: No Hx Diabetes: No Hx Renal Disease: No Hx MRSA: No Surgical History: appendectomy, cholecystectomy, Hysterectomy - Vaccination History Hx Tetanus, Diphtheria Vaccination: No Hx Influenza Vaccination: No Hx Pneumococcal Vaccination: No - Social History Hx Tobacco Use: No Hx Alcohol Use: No Hx Substance Use: No Hx Physical Abuse: No Hx Emotional Abuse: No - Female History Patient : No Family Medical History - Family History Father Living Status: Age at (years of age): 75 Cause of : [place] Hx Cardiac Disease: Yes Brother Hx Family Stroke: Yes Physical Exam - Physical Exam General Appearance: Alert, Comfortable, No apparent distress, Well Developed, Well Groomed, Well Hydrated, Well Nourished Eye Exam: bilateral normal Ears, Nose, Throat: hearing grossly normal, normal ENT inspection, normal pharynx Neck: non-tender, full range of motion, supple, normal inspection Respiratory: chest non-tender, lungs clear, normal breath sounds, no respiratory distress, no accessory muscle use Cardiovascular/Chest: normal peripheral pulses, regular rate, rhythm, no edema, no gallop, no JVD, no murmur Peripheral Pulses: radial,right: 2+, radial,left: 2+ Gastrointestinal/Abdominal: normal bowel sounds, non tender, soft, no organomegaly, no pulsatile mass Rectal Exam: deferred Back Exam: normal inspection, no CVA tenderness, no vertebral tenderness Extremity: normal range of motion, non-tender, normal inspection Neurologic: no motor/sensory deficits, alert, normal mood/affect, oriented x 3 Skin Exam: normal color, warm/dry Progress - Progress Progress: 07/24/20 16:31 partial ddx: covid, uti, gastroenteritis, diverticulitis, c. diff. 07/24/20 16:36 patient given 1 gram ceftriaxone for UTI. 07/24/20 16:46 CT abd/pelvis c/w with colitis. The data reviewed when caring for this patient included: nurse notes, prior records, etc. The history and assessments from nurses notes were reviewed and considered, and the patient's home medication list was also reviewed and considered. My assessment and the results of testing completed here in the ED were discussed with the patient. All questions were answered, and they express understanding of my assessment and the plan. They have been instructed to return if their symptoms worsen, and have been asked to follow up with their primary care physician to recheck today's presenting complaint. return precautions given. I have reviewed medication, benefits, alternatives and side effects. Patient decided to proceed with medication. Edwina Veronica DO #[id number] - Results/Orders Results/Orders: 07/24/20 15:45 Hold Metformin x 48Hrs [id number] Abdomen/Pelvis w/Contrast [CT] Stat 07/24/20 15:47 CLOSTRIDIUM DIFFICILE AG/TOXIN Stat NOROVIRUS,EIA STOOL Stat 07/24/20 15:55 OVA & PARASITE EXAM Routine FECAL WBC LEUKO EZ CRISTA Stat 07/24/20 15:58 URINE CULTURE W/COLONY COUNT Stat 07/24/20 16:21 cefTRIAXone SODIUM [Rocephin] 1 gm Sodium Chl 0.9% 50Ml Min-Bag+ [NS 50ml MINI-BAG+] 50 ml IVPB ONCE Laboratory Results WBC 7.1 K/mm3 (4.8-10.8) 07/24/20 15: RBC 4.37 M/mm3 (4.20-5.40) 07/24/20 15: Hgb 13.2 gm/dL (12.0-16.0) 07/24/20 15:27 Hct 39.3 % (36.0-47.0) 07/24/20 15: MCV 90.0 fl (81.0-99.0) 07/24/20 15: MCH 30.1 pg (27.0-31.0) 07/24/20 15: MCHC 33.5 g/dL (33.0-37.0) 07/24/20 15: RDW 14.5 % (11.5-14.5) 07/24/20 15: Plt Count 219 K/mm3 (130-400) 07/24/20 15:27 MPV 8.6 fl (7.40-10.4) 07/24/20 15:27 Absolute Neuts (auto) 5.60 K/uL (1.8-6.8) 07/24/20 15: Absolute Lymphs (auto) 1.00 K/uL (1.0-3.4) 07/24/20 15:27 Absolute Monos (auto) 0.50 K/uL (0.2-0.8) 07/24/20 15:27 Absolute Eos (auto) 0.00 K/uL (0.0-0.4) 07/24/20 15:27 Absolute Basos (auto) 0.00 K/uL (0.0-0.1) 07/24/20 15:27 Neutrophils % 79.0 % (42.0-78.0) H 07/24/20 15:27 Lymphocytes % 14.0 % (20.0-50.0) L 07/24/20 15:27 Monocytes % 6.4 % (2.0-9.0) 07/24/20 15: Eosinophils % 0.2 % (1.0-5.0) L 07/24/20 15: Basophils % 0.4 % (0.0-2.0) 07/24/20 15:27 Sodium 138 mmol/L (135-145) 07/24/20 15:27 Potassium 3.9 mmol/L (3.6-5.0) 07/24/20 15:27 Chloride 109 mmol/L (101-111) 07/24/20 15:27 Carbon Dioxide 16 mmol/L (21-31) L 07/24/20 15:27 Anion Gap 16.9 (12-18) 07/24/20 15:27 BUN 25 mg/dL (7-18) H 07/24/20 15:27 Creatinine 1.20 mg/dL (0.6-1.3) 07/24/20 15:27 BUN/Creatinine Ratio 20.8 (10-20) H 07/24/20 15:27 Random Glucose 148 mg/dL (70-105) H 07/24/20 15:27 Serum Osmolality 282.8 mOsm/L (275-295) 07/24/20 15:27 Calcium 9.0 mg/dL (8.4-10.2) 07/24/20 15:27 Total Bilirubin 0.6 mg/dL (0.2-1.0) 07/24/20 15:27 AST 31 IU/L (10-42) 07/24/20 15:27 ALT 31 IU/L (10-60) 07/24/20 15:27 Alkaline Phosphatase 89 IU/L (42-121) 07/24/20 15:27 Serum Total Protein 8.1 gm/dL (6.4-8.2) 07/24/20 15:27 Albumin 4.2 g/dl (3.2-5.5) 07/24/20 15:27 Globulin 3.9 gm/dL (2.3-3.5) H 07/24/20 15:27 Albumin/Globulin Ratio 1.1 (1.1-1.9) 07/24/20 15:27 Lipase 41 U/L (22-51) 07/24/20 15:27 Urine Color Yellow (Yellow) 07/24/20 15:58 Urine Appearance Sl cloudy (Clear) 07/24/20 15:58 Urine pH 5.5 (4.5-7.8) 07/24/20 15:58 Ur Specific [place] >= 1.030 (1.005-1.030) 07/24/20 15:58 Urine Protein 30 mg/dL 07/24/20 15:58 Urine Glucose (UA) Negative mg/dL (Negative) 07/24/20 15:58 Urine Ketones 15 mg/dL (NEGATIVE) H 07/24/20 15:58 Urine Blood Moderate (Negative) H 07/24/20 15:58 Urine Nitrite Positive H 07/24/20 15:58 Urine Bilirubin Negative (NEGATIVE) 07/24/20 15:58 Urine Urobilinogen 0.2 mg/dL (0.2-1.0) 07/24/20 15:58 Ur Leukocyte Esterase Large (Negative) H 07/24/20 15:58 Urine RBC 10-20 /hpf H 07/24/20 15:58 Urine WBC >50 /hpf H 07/24/20 15:58 Ur Epithelial Cells 3-5 /hpf 07/24/20 15:58 Urine Bacteria 2+ H 07/24/20 15:58 - EKG/XRAY/CT CT Ordered: No CT Interpretation Call Back: No Departure - Departure Clinical Impression: COVID-19, Acute cystitis with hematuria Time of Disposition: 16:43 Departure Forms: ED Discharge - Pt. Copy, Patient Portal Self Enrollment Instructions: Urinary Tract Infections in Adults, Coronavirus Disease 2019 (COVID-19) Overview, [place] Diet, Diarrhea in Adolescents and Adults Diet: bland diet Activity: increase activity as tolerated Referrals: JONNY CARREON MD [Primary Care Provider] - 1-5 Days Prescriptions: Lactobacillus [Abatinex] 680 mg PO BID #16 cap Sulfamethoxazole-Trimethoprim [Bactrim Ds 800-160 mg] 1 tab PO BID #14 tab Ondansetron HCl [Zofran] 4 mg PO TID PRN #15 tab PRN Reason: Vomiting Home Medications: Ambulatory Orders Topiramate [Topamax] 200 mg PO HS 05/22/13 Primidone 50 mg PO BEDTIME 06/23/16 Atorvastatin Calcium [Lipitor] 20 mg PO BEDTIME 01/05/20 Vortioxetine HBr [Trintellix] 10 mg PO DAILY 01/05/20 tiZANidine [Zanaflex] 2 - 4 mg PO BEDTIME 01/05/20 Aspirin-Dipyridamole [Aspirin/Dipyridamole ER 25-200 mg] 1 cap PO DAILY 07/24/20 Lactobacillus [Abatinex] 680 mg PO BID #16 cap 07/24/20 Ondansetron HCl [Zofran] 4 mg PO TID PRN #15 tab 07/24/20 Sulfamethoxazole-Trimethoprim [Bactrim Ds 800-160 mg] 1 tab PO BID #14 tab 07/24/20
--- NOTE | 2020-07-24 16:43 | CT ---
CT ABDOMEN PELVIS WITH IV CONTRAST HISTORY: Abdominal pain. COMPARISON: None. TECHNIQUE: CT scan of the abdomen and pelvis was performed with IV contrast. This exam was performed according to our departmental dose-optimization program, which includes automated exposure control, adjustment of the mA and/or kV according to patient size and/or use of iterative reconstruction technique. FINDINGS: The lung bases are clear. No pleural or pericardial effusions. There is no hiatal hernia. There has been a prior cholecystectomy and hysterectomy. The liver, spleen, pancreas, adrenal glands, and kidneys are unremarkable. No hydronephrosis or urinary stones are seen. There is diffuse inflammatory stranding surrounding the urinary bladder. There is wall thickening throughout the large bowel. The colon is fluid-filled, suggesting a diarrheal illness. No evidence of small bowel obstruction or acute appendicitis. The stomach is unremarkable. There is no intraperitoneal adenopathy, free fluid, or free air. There is a small fat-containing umbilical hernia, but without inflammatory changes in the hernia sac. The aorta is normal caliber and contains atherosclerotic calcifications. IMPRESSION: 1. Findings consistent with colitis with a diarrheal illness, which may be infectious or inflammatory in origin. 2. Query mild inflammatory changes surrounding the urinary bladder; correlate with urinalysis to exclude UTI. Electronically signed by: Deni Horton MD 07/24/2020 4:42 PM [employer]
[2020-07-24 17:50] VITALS: BP 133/64; TEMP 99.2; O2SAT 92
== END 2020-07-24 17:12 | disposition home or self-care (01) ==
LOC: ER 14:58
DX: U07.1 COVID-19 (principal); N30.01 Acute cystitis with hematuria; N39.41 Urge incontinence; E78.5 Hyperlipidemia, unspecified; Z86.73 Personal history of transient ischemic attack (TIA), and cerebral infarction without residual deficits; Z90.49 Acquired absence of other specified parts of digestive tract; Z95.5 Presence of coronary angioplasty implant and graft; Z79.82 Long term (current) use of aspirin; Z79.899 Other long term (current) drug therapy
CPT/HCPCS: 36415; 74177; 80053; 81001; 83690; 85025; 87086; 87502; 87635; J0696; J7040; J7050